=== PATIENT | male | born 1980 | race Caucasian/White ===

== ENCOUNTER 2020-02-22 17:18 | Emergency (ER) | payer MEDICAID ==
--- NOTE | 2020-02-22 18:47 | ER Document Report ---
ED General - General Chief Complaint: Other Stated Complaint: SHORTNESS OF BREATH/DIZZINESS Notes: Patient is a 39-year-old white male with a history of anemia, iron deficient, who presents to the emergency department the chief complaint of feeling like his iron is low. He states he is known it has been low for some time. He states in the past he was in the mid sevens. He states that he was diagnosed by his primary doctor in [place]. He was scheduled to start receiving iron infusions and then left town. He states he was supposed to have a colonoscopy scheduled as well but he also left before that occurred. He states over the past 3 days he started to feel like he is declining. He feels slightly dizzy and spacey. States he is got some tingling in both lower extremities and having trouble sleeping at night. He states this is exactly how he felt when he had anemia prior. He denies any chest pain or shortness of breath at this time. Denies any abdominal pain at this time. He does add that he has hemorrhoids that bleed bright red blood occasionally. He states is been several weeks since they have bled. He denies any other bleeding. - Related Data Allergies/Adverse Reactions: No Known Allergies Allergy (Verified 02/22/20 18:38) Past Medical History - Social History Smoking Status: Unknown if Ever Smoked Family History: Reviewed & Not Pertinent Review of Systems - Review of Systems Notes: As per HPI otherwise negative Physical Exam - Vital signs Vitals: Temp 98.8 F 02/22/20 17:21 - General General appearance: Appears well, Alert In distress: None - HEENT Head: Normocephalic, Atraumatic Eyes: Normal Conjunctiva: Normal Extraocular movements intact: Yes Pupils: PERRL External canal: Normal Mouth/Lips: Normal Mucous membranes: Normal Pharynx: Normal Neck: Normal, Supple - Respiratory Respiratory status: No respiratory distress Chest status: Nontender Breath sounds: Normal Chest palpation: Normal - Cardiovascular Rhythm: Regular Heart sounds: Normal auscultation Pulses: Normal: Posterior tibial, Dorsalis pedis - Abdominal Inspection: Normal Distension: No distension Bowel sounds: Normal Tenderness: Nontender Organomegaly: No organomegaly - Extremities General upper extremity: Normal inspection, Nontender, Normal color, Normal ROM, Normal temperature General lower extremity: Normal inspection, Nontender, Normal color, Normal ROM, Normal temperature, Normal weight bearing. No: Titus's sign - Neurological Neuro grossly intact: Yes Cognition: Normal Orientation: AAOx4 Fingal Coma Scale Eye Opening: Spontaneous Darrel Coma Scale Verbal: Oriented Darrel Coma Scale Motor: Obeys Commands Darrel Coma Scale Total: 15 Speech: Normal Motor strength normal: LUE, RUE, LLE, RLE Sensory: Normal - Psychological Associated symptoms: Normal affect, Normal mood - Skin Skin Temperature: Warm Skin Moisture: Dry Skin Color: Normal Course - Re-evaluation Re-evalutation: 02/22/20 20:41 Patient's hemoglobin 8.7. His cell make-up is consistent with severe iron deficiency anemia. He is on iron 325 3 times daily. Despite this he is also having physical symptoms of iron deficiency anemia such as severe restless legs. He states that is the worst of what he feels is the inability to get enough sleep at night because he cannot stop moving his legs. He will call the grill prep cook in the morning, Dr. Corina bonilla to discuss iron infusions since the oral iron does not seem to be working very well. In the interim we will prescribe him pramipexole for the restless legs. He is otherwise stable, resting comfortably in the room. He is appropriate for discharge and outpatient follow- up. I counseled him regarding the importance of outpatient follow-up and advised that he return here or any ER immediately with any new, persistent or worsening symptoms. He verbalized understood and agreed. - Vital Signs Vital signs: Temp Pulse Resp BP Pulse Ox 98.2 F 106 H 14 139/80 H 100 02/22/20 17:24 02/22/20 17:24 02/22/20 17:24 02/22/20 17:24 02/22/20 17:24 - Laboratory Result Diagrams: 02/22/20 19:08 02/22/20 19:08 Laboratory results interpreted by me: 02/22/20 19:08 Hgb 8.7 L Hct 28.9 L MCV 62 L MCH 18.7 L MCHC 30.0 L RDW 17.7 H Discharge - Discharge Clinical Impression: Restless leg syndrome Iron deficiency anemia Qualifiers: Iron deficiency anemia type: unspecified iron deficiency Qualified Code(s): D50.9 - Iron deficiency anemia, unspecified Condition: Stable Disposition: HOME, SELF-CARE Instructions: Anemia, Iron Deficiency ([facility]) Additional Instructions: Please call the office of Dr. Manzano tomorrow morning for further outpatient care and management and discuss potential IV infusions of iron. You have been given pramipexole for your restless legs. Take this 2 to 3 hours before bedtime. The restless legs are typically a symptom of iron deficiency anemia. Once her iron is corrected and her hemoglobin improves we should be able to discontinue this medication. Please consult with Dr. Carvalho regarding this as well. Please return here or any ER immediately with any new, persistent or worsening symptoms. Prescriptions: Pramipexole Di-HCl [Mirapex] 0.125 mg PO QPM #15 tablet Referrals: RACHAEL MANZANO MD [ACTIVE STAFF] - Follow up as needed
[2020-02-22 19:23] LABS: ABSOLUTE BASOPHILS # (AUTO) 0.1 10^3/uL (0.0-0.2); ABSOLUTE EOSINOPHILS # (AUTO) 0.3 10^3/uL (0.0-0.6); ABSOLUTE MONOCYTES (AUTO) 0.7 10^3/uL (0.1-1.4); ABSOLUTE NEUT (AUTO) 3.2 10^3/uL (1.7-8.2); BASOPHILS % (AUTO) 1.2 % (0-2); EOSINOPHILS % (AUTO) 4.8 % (0-6); HEMATOCRIT 28.9 % (37.9-51.0); HEMOGLOBIN 8.7 g/dL (13.5-17.0); LYMPHOCYTES % (AUTO) 32.5 % (13-45); MEAN CORPUSCULAR HEMOGLOBIN 18.7 pg (27.0-33.4); MONOCYTES % (AUTO) 10.5 % (3-13); PLATELET COUNT 348 10^3/uL (150-450); RED BLOOD COUNT 4.63 10^6/uL (4.35-5.55); RED CELL DISTRIBUTION WIDTH 17.7 % (11.5-14.0); TOTAL CELLS COUNTED % (AUTO) 100 %; WHITE BLOOD COUNT 6.3 10^3/uL (4.0-10.5)
[2020-02-22 19:41] LABS: ALBUMIN 4.2 g/dL (3.5-5.0); ALKALINE PHOSPHATASE 74 U/L (38-126); ANION GAP 8 (5-19); ASPARTATE AMINO TRANSFERASE 23 U/L (17-59); BILIRUBIN,TOTAL 0.4 mg/dL (0.2-1.3); BLOOD UREA NITROGEN 15 mg/dL (7-20); CALCIUM 9.4 mg/dL (8.4-10.2); CARBON DIOXIDE 26 mmol/L (22-30); CHLORIDE 105 mmol/L (98-107); GLUCOSE 110 mg/dL (75-110); POTASSIUM 4.3 mmol/L (3.6-5.0); TOTAL PROTEIN 7.5 g/dL (6.3-8.2)
[2020-02-22 19:48] LABS: MEAN CORPUSCULAR VOLUME 62 fl (80-97)
[2020-02-22 19:49] LABS: ANISOCYTOSIS 1+; HYPOCHROMASIA SLIGHT; OVALOCYTES 2+; POIKILOCYTOSIS 2+; TEAR DROP CELLS 1+; TOXIC GRANULATION 1+
[2020-02-22 19:50] LABS: PLATELET COMMENT ADEQUATE
[2020-02-22] MEDS ORDERED: PRAMIPEXOLE DI-HCL 0.25 MG TABLET PO ONE (20:40)
[2020-02-22] MEDS ORDERED: PRAMIPEXOLE DI-HCL 0.25 MG TABLET ONE (21:14)
[2020-02-22 21:24] VITALS: BP 135/83
== END 2020-02-22 21:24 | disposition home or self-care (01) ==
LOC: ER 17:18
DX: G25.81 Restless legs syndrome (principal); D50.9 Iron deficiency anemia, unspecified; R06.02 Shortness of breath; R42 Dizziness and giddiness
CPT/HCPCS: 99284; 36415; 85025; 80053; J3490